=== PATIENT | male | born 1975 | race Hispanic/Latino ===

== ENCOUNTER 2022-07-11 00:12 | Emergency (ER) | payer SELFPAY ==
[2022-07-11 00:18] VITALS: BP 139/91
[2022-07-11 00:31] VITALS: BP 136/86
[2022-07-11] MEDS ORDERED: KEFLEX500 MG PO (01:29)
[2022-07-11 01:50] VITALS: BP 136/86
== END 2022-07-11 02:00 | disposition home or self-care (01) | DRG 914 ==
LOC: ED 00:12
DX: S41.141A Puncture wound with foreign body of right upper arm, initial encounter (principal); X95.9XXA Assault by unspecified firearm discharge, initial encounter; Y92.410 Unspecified street and highway as the place of occurrence of the external cause